=== PATIENT | male | born 1985 | race African-American/Black ===

== ENCOUNTER 2017-10-04 14:10 | Emergency (ER) | payer OTHER ==
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
[2017-10-04] MEDS ORDERED: ACETAMINOPHEN 325 MG TABLET (FP) PO ONE (14:20)
[2017-10-04 14:21] VITALS: BP 112/71; PULSE 76; TEMP 98.6; BMI 26.6
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
--- NOTE | 2017-10-04 15:45 | PDOC ---
*Physical Exam - Vital Signs Last Vital Signs Temp Pulse Resp BP Pulse Ox 98.6 F 76 18 112/71 100 10/04/17 14:18 10/04/17 14:18 10/04/17 14:18 10/04/17 14:18 10/04/17 14:18 ED Treatment Course - Medications Given in the ED: ED Medications Discontinued Medications Generic Name Dose Route Start Last Admin Trade Name Diamond PRN Reason Stop Dose Admin Acetaminophen 650 mg 10/04/17 14:20 10/04/17 14:21 Tylenol - PO 10/04/17 14:21 650 mg ONCE ONE Administration Medical Decision Making - Medical Decision Making X-rays of the left hand were reviewed and are negative for acute fracture 10/04/17 15:45 *DC/Admit/Observation/Transfer Diagnosis at time of Disposition: Hand pain, left, Contusion, hand - Discharge Dispostion Disposition: HOME Condition at time of disposition: Stable - Referrals Referrals: Bhupinder Martínez MD [Staff Physician] - Derrell Lawrence MD [Primary Care Provider] - - Patient Instructions Printed Discharge Instructions: Contusion, DI for Contusion Additional Instructions: It is important to follow-up with hand surgery. Return to the emergency room if her symptoms worsen or go unresolved prior to follow-up. He may take Tylenol and Motrin for pain. Necessary - Post Discharge Activity
== END 2017-10-04 15:44 | disposition home or self-care (01) ==
LOC: JERFT 14:10
DX: S60.222A Contusion of left hand, initial encounter (principal); V43.52XA Car driver injured in collision with other type car in traffic accident, initial encounter; W22.11XA Striking against or struck by driver side automobile airbag, initial encounter; Y92.414 Local residential or business street as the place of occurrence of the external cause; Y93.89 Activity, other specified; Y99.8 Other external cause status
CPT/HCPCS: 73110-TC-LR-FY; 73130-TC-LR-FY; 99281-25